=== PATIENT | male | born 1985 | race African-American/Black ===

== ENCOUNTER 2019-05-27 02:29 | Emergency (ER) | payer MEDICAID, OTHER ==
[~2019-05-27] VITALS: Ht 190.5 cm; Wt 204.0 kg
[2019-05-27] MEDS ORDERED: KETOROLAC 60MG/2ML VIAL IM ONE (02:45)
[2019-05-27 03:06] VITALS: BP 168/102
== END 2019-05-27 03:35 | disposition home or self-care (01) ==
LOC: ER 02:29
DX: M25.561 Pain in right knee (principal); Z91.81 History of falling; I10 Essential (primary) hypertension
CPT/HCPCS: 73562; 96372; 99283; J1885; Z7610